=== PATIENT | female | born 1945 | race Caucasian/White ===

== ENCOUNTER 2018-12-16 06:43 | Inpatient (IN) | payer MEDICARE, OTHER ==
[~2018-12-16] VITALS: Ht 152.4 cm; Wt 122.9 kg
[2018-12-16 06:45] VITALS: BP_SYST 155
[2018-12-16] MEDS ORDERED: LevALBUTEROL HCL 1.25 MG/0.5 ML *CONC.* VIAL.NEB (XOPENEX CONC.) INH ONE (07:00)
[2018-12-16] MEDS ORDERED: IPRATROPIUM BROM 0.5 MG/2.5 ML VIAL.NEB (ATROVENT) IH ONE (07:00)
[2018-12-16 07:41] LABS: BASOPHILS % (AUTO) 0.2 % (0.0-2.0); EOSINOPHILS # (AUTO) 0.1 K/uL (0.0-0.4); EOSINOPHILS % (AUTO) 1.1 % (0.0-4.0); HEMATOCRIT 35.5 % (36-48); HEMOGLOBIN 11.5 g/dL (12.0-16.0); LYMPHOCYTES # (AUTO) 1.3 K/uL (1.0-5.5); MEAN CORPUSCULAR HEMOGLOBIN 29 pg (27-31); MEAN CORPUSCULAR HGB CONC 33 % (32-36); MEAN CORPUSCULAR VOLUME 89 fL (79.0-98.0); MONOCYTES # (AUTO) 0.4 K/uL (0.0-1.0); MONOCYTES % (AUTO) 4.1 % (1.7-9.3); NEUTROPHILS # (AUTO) 7.2 K/uL (1.8-7.7); NEUTROPHILS % (AUTO) 80.6 % (40.0-70.0); PLATELET COUNT (AUTO) 177 K/uL (130-430); RED BLOOD CELL COUNT(AUTO) 4.01 MIL/uL (4.2-6.2); RED CELL DISTRIBUTION WIDTH 13.5 % (9.0-15.0)
[2018-12-16 07:54] LABS: PROTHROMBIN TIME 10.3 SECS (9.5-12.5)
[2018-12-16 07:55] LABS: ALANINE AMINOTRANSFERASE 31 U/L (12-78); ANION GAP 12 (5-15); ASPARTATE AMINOTRANSFERASE 42 U/L (10-37); CALCIUM 7.9 mg/dL (8.4-11.0); CHLORIDE 103 mmol/L (98-107); CREATININE 0.87 mg/dL (0.55-1.30); GLUCOSE 283 mg/dL (70-99); POTASSIUM 3.5 mmol/L (3.5-5.1); SODIUM SERUM 140 mmol/L (136-145); TOTAL BILIRUBIN 0.2 mg/dL (0.0-1.0); UREA NITROGEN, BLOOD 13 mg/dL (8-21)
[2018-12-16] MEDS ORDERED: ASPIRIN 81 MG TAB.CHEW PO ONE (08:30)
[2018-12-16] MEDS ORDERED: ASPIRIN 81 MG TABLET(ECOTRIN) ONE (09:16)
[2018-12-16] MEDS ORDERED: PHEN100O4 PO ×2 (10:05)
[2018-12-16] MEDS ORDERED: GLU850 PO (10:05)
[2018-12-16] MEDS ORDERED: LISI40TA4 PO (10:05)
[2018-12-16] MEDS ORDERED: RANI150T8 PO (10:05)
[2018-12-16] MEDS ORDERED: CARV25TA55 PO (10:05)
[2018-12-16] MEDS ORDERED: GABA-533 PO (10:05)
[2018-12-16] MEDS ORDERED: CLAR500T PO (10:05)
[2018-12-16] MEDS ORDERED: INSULIN ASPART 100 UNITS/ML, 10 ML VIAL (NovoLOG) SUBCUT PRN (10:30)
[2018-12-16] MEDS ORDERED: ACETAMINOPHEN 325 MG TABLET PO PRN (11:00)
[2018-12-16] MEDS ORDERED: GLUCOSE 15 GM GEL (in 37.5 GM TUBE) PO PRN (11:00)
[2018-12-16] MEDS ORDERED: DEXTROSE 50%-WATER 50 ML DISP.SYRIN IVP PRN (11:00)
[2018-12-16] MEDS ORDERED: D5W 1,000 ML IV PRN (11:00)
[2018-12-16] MEDS ORDERED: CARVEDILOL 25 MG TABLET (COREG) PO ONE ×2 (11:30)
[2018-12-16] MEDS ORDERED: FAMOTIDINE 20 MG TABLET PO ONE (11:30)
[2018-12-16 11:47] VITALS: BP_SYST 143
[2018-12-16] MEDS: INSULIN ASPART 100 UNITS/ML, 10 ML VIAL (NovoLOG) SUBCUT PRN ×3 (12:08→21:10)
[2018-12-16 14:01] VITALS: BP_SYST 143
[2018-12-16] MEDS: GABAPENTIN 400 MG CAPSULE PO SCH ×2 (14:33→20:40)
[2018-12-16] MEDS: LevALBUTEROL HCL 1.25 MG/0.5 ML *CONC.* VIAL.NEB (XOPENEX CONC.) INH SCH (15:34)
[2018-12-16 16:02] VITALS: BP_SYST 157
[2018-12-16 17:25] VITALS: BP_SYST 128
[2018-12-16 20:10] VITALS: BP_SYST 155
[2018-12-16] MEDS: PHENYTOIN 100 MG/4 ML UDC (DILANTIN) PO SCH (20:41)
[2018-12-16] MEDS: CARVEDILOL 25 MG TABLET (COREG) PO SCH (20:48)
[2018-12-17 01:13] VITALS: BP_SYST 149
[2018-12-17] MEDS: INSULIN ASPART 100 UNITS/ML, 10 ML VIAL (NovoLOG) SUBCUT PRN ×4 (06:31→21:28)
[2018-12-17 07:52] VITALS: BP_SYST 129
[2018-12-17] MEDS: LevALBUTEROL HCL 1.25 MG/0.5 ML *CONC.* VIAL.NEB (XOPENEX CONC.) INH SCH ×3 (08:18→23:19)
[2018-12-17] MEDS: PHENYTOIN 100 MG/4 ML UDC (DILANTIN) PO SCH ×2 (08:32→21:26)
[2018-12-17] MEDS: ASPIRIN 81 MG TABLET(ECOTRIN) PO SCH (08:33)
[2018-12-17] MEDS: LISINOPRIL 20 MG TABLET PO SCH (08:33)
[2018-12-17] MEDS: GABAPENTIN 400 MG CAPSULE PO SCH ×3 (08:33→21:26)
[2018-12-17] MEDS: CARVEDILOL 25 MG TABLET (COREG) PO SCH ×2 (08:34→21:27)
[2018-12-17] MEDS: FAMOTIDINE 20 MG TABLET PO SCH (08:34)
[2018-12-17] MEDS ORDERED: FUROSEMIDE 20 MG/2 ML VIAL IVP ONE (10:15)
[2018-12-17 11:27] VITALS: BP_SYST 120
[2018-12-17 15:00] LABS: CHOLESTEROL 168 mg/dL (<200); HDL CHOLESTEROL 38 mg/dL (>55); LDL CHOLESTEROL 106 mg/dL (<100); TRIGLYCERIDES 202 mg/dL (30-150)
[2018-12-17 15:38] VITALS: BP_SYST 119
[2018-12-17 21:19] VITALS: BP_SYST 122
[2018-12-17] MEDS: FUROSEMIDE 20 MG/2 ML VIAL IVP SCH (21:25)
[2018-12-18 01:34] VITALS: BP_SYST 113
[2018-12-18] MEDS: INSULIN ASPART 100 UNITS/ML, 10 ML VIAL (NovoLOG) SUBCUT PRN ×3 (06:11→20:46)
[2018-12-18 07:06] LABS: ANION GAP 10 (5-15); CALCIUM 8.8 mg/dL (8.4-11.0); CHLORIDE 102 mmol/L (98-107); CREATININE 0.74 mg/dL (0.55-1.30); GLUCOSE 143 mg/dL (70-99); POTASSIUM 3.8 mmol/L (3.5-5.1); SODIUM SERUM 141 mmol/L (136-145); UREA NITROGEN, BLOOD 9 mg/dL (8-21)
[2018-12-18] MEDS: LevALBUTEROL HCL 1.25 MG/0.5 ML *CONC.* VIAL.NEB (XOPENEX CONC.) INH SCH ×3 (07:11→23:00)
[2018-12-18 08:11] VITALS: BP_SYST 122
[2018-12-18] MEDS: PHENYTOIN 100 MG/4 ML UDC (DILANTIN) PO SCH ×3 (08:51→20:42)
[2018-12-18] MEDS: FUROSEMIDE 20 MG/2 ML VIAL IVP SCH (08:51)
[2018-12-18] MEDS: LISINOPRIL 20 MG TABLET PO SCH (08:52)
[2018-12-18] MEDS: FAMOTIDINE 20 MG TABLET PO SCH (08:52)
[2018-12-18] MEDS: ASPIRIN 81 MG TABLET(ECOTRIN) PO SCH (08:52)
[2018-12-18] MEDS: GABAPENTIN 400 MG CAPSULE PO SCH ×3 (08:53→20:43)
[2018-12-18] MEDS: CARVEDILOL 25 MG TABLET (COREG) PO SCH ×2 (08:54→20:43)
[2018-12-18 11:36] VITALS: BP_SYST 121
[2018-12-18 15:38] VITALS: BP_SYST 107
[2018-12-18 20:00] VITALS: BP_SYST 103
[2018-12-18] MEDS ORDERED: ONDANSETRON HCL 4 MG/2 ML VIAL IVP ONE (22:00)
[2018-12-19] VITALS: BP_SYST 101
[2018-12-19] MEDS: LevALBUTEROL HCL 1.25 MG/0.5 ML *CONC.* VIAL.NEB (XOPENEX CONC.) INH SCH (08:06)
[2018-12-19] MEDS: GABAPENTIN 400 MG CAPSULE PO SCH (08:58)
[2018-12-19] MEDS ORDERED: FUROSEMIDE 20 MG TABLET PO SCH (09:00)
[2018-12-19] MEDS: PHENYTOIN 100 MG/4 ML UDC (DILANTIN) PO SCH ×2 (09:00→09:03)
[2018-12-19] MEDS: LISINOPRIL 20 MG TABLET PO SCH (09:01)
[2018-12-19] MEDS: FAMOTIDINE 20 MG TABLET PO SCH (09:02)
[2018-12-19] MEDS: CARVEDILOL 25 MG TABLET (COREG) PO SCH (09:02)
[2018-12-19] MEDS: ASPIRIN 81 MG TABLET(ECOTRIN) PO SCH (09:02)
[2018-12-19 09:13] VITALS: BP_SYST 136
[2018-12-19] MEDS: INSULIN ASPART 100 UNITS/ML, 10 ML VIAL (NovoLOG) SUBCUT PRN (11:22)
[2018-12-19 13:02] VITALS: BP_SYST 131
[2018-12-19] MEDS ORDERED: ALBMDI INH ×2 (13:16→14:02)
[2018-12-19] MEDS ORDERED: FURO-150 PO ×2 (13:16→14:01)
[2018-12-19 13:57] VITALS: BP_SYST 132
== END 2018-12-19 14:31 | disposition home or self-care (01) | DRG 291 ==
LOC: SED 06:43 → STU 10:16
PROVIDERS: ADMIT Internal Medicine; ATTEND Internal Medicine
DX: I11.0 Hypertensive heart disease with heart failure (principal); J96.20 Acute and chronic respiratory failure, unspecified whether with hypoxia or hypercapnia; J44.1 Chronic obstructive pulmonary disease with (acute) exacerbation; Z68.43 Body mass index [BMI] 50.0-59.9, adult; E11.9 Type 2 diabetes mellitus without complications; I50.23 Acute on chronic systolic (congestive) heart failure; I42.9 Cardiomyopathy, unspecified; E66.01 Morbid (severe) obesity due to excess calories; E78.5 Hyperlipidemia, unspecified; G40.909 Epilepsy, unspecified, not intractable, without status epilepticus; Z82.49 Family history of ischemic heart disease and other diseases of the circulatory system; Z87.891 Personal history of nicotine dependence; Z95.810 Presence of automatic (implantable) cardiac defibrillator; Z79.899 Other long term (current) drug therapy; Z79.82 Long term (current) use of aspirin
CPT/HCPCS: 36415; 36600; 71045; 80048; 80053; 80061; 80185-TC; 82803-TC; 82962; 83735-TC; 83880; 84484; 85025; 85610-TC; 85730-TC; 86710; 90656; 93005; 94640; 94760; 99285; G0378; J1815; J1940; J7612

== ENCOUNTER 2019-02-22 14:34 | Inpatient (IN) | payer OTHER ==
[~2019-02-22] VITALS: Ht 144.8 cm; Wt 115.9 kg
[~2019-02-22 14:34] MED LIST: ALBMDI INH; CARV25TA55 PO; FURO-150 PO; GABA-533 PO; GLU850 PO; LISI40TA4 PO; PHEN100O4 PO; RANI150T8 PO
[2019-02-22 14:40] VITALS: BP_SYST 149
[2019-02-22 15:10] LABS: BASOPHILS % (AUTO) 0.4 % (0.0-2.0); EOSINOPHILS # (AUTO) 0.2 K/uL (0.0-0.4); EOSINOPHILS % (AUTO) 1.7 % (0.0-4.0); HEMATOCRIT 35.2 % (36-48); HEMOGLOBIN 11.4 g/dL (12.0-16.0); LYMPHOCYTES # (AUTO) 1.3 K/uL (1.0-5.5); LYMPHOCYTES % (AUTO) 13.4 % (20.5-51.5); MEAN CORPUSCULAR HEMOGLOBIN 29 pg (27-31); MEAN CORPUSCULAR HGB CONC 32 % (32-36); MEAN CORPUSCULAR VOLUME 89 fL (79.0-98.0); MONOCYTES # (AUTO) 0.4 K/uL (0.0-1.0); MONOCYTES % (AUTO) 4.5 % (1.7-9.3); NEUTROPHILS # (AUTO) 7.5 K/uL (1.8-7.7); PLATELET COUNT (AUTO) 173 K/uL (130-430); RED BLOOD CELL COUNT(AUTO) 3.96 MIL/uL (4.2-6.2); RED CELL DISTRIBUTION WIDTH 15.2 % (9.0-15.0); WHITE BLOOD COUNT (AUTO) 9.4 K/uL (4.8-10.8)
[2019-02-22 15:26] LABS: ANION GAP 6 (5-15); CALCIUM 9.3 mg/dL (8.4-11.0); CHLORIDE 102 mmol/L (98-107); CREATININE 0.82 mg/dL (0.55-1.30); GLUCOSE 236 mg/dL (70-99); POTASSIUM 4.2 mmol/L (3.5-5.1); SODIUM SERUM 137 mmol/L (136-145); UREA NITROGEN, BLOOD 16 mg/dL (8-21)
[2019-02-22 15:31] LABS: ALANINE AMINOTRANSFERASE 52 U/L (12-78); ALBUMIN 3.2 g/dL (3.4-4.8); ASPARTATE AMINOTRANSFERASE 47 U/L (10-37); TOTAL BILIRUBIN 0.5 mg/dL (0.0-1.0)
[2019-02-22] MEDS ORDERED: INSULIN ASPART 100 UNITS/ML, 10 ML VIAL (NovoLOG) SUBCUT PRN (16:00)
[2019-02-22] MEDS ORDERED: ASPIRIN 325 MG TABLET PO ONE (16:00)
[2019-02-22 16:07] LABS: PROTHROMBIN TIME 9.9 SECS (9.5-12.5)
[2019-02-22 16:30] VITALS: BP_SYST 124
[2019-02-22] MEDS: INSULIN LISPRO SLIDING SCALE 100 UNITS/ML VIAL (humaLOG) SUBCUT PRN ×2 (17:26→20:14)
[2019-02-22 20:00] VITALS: BP_SYST 135
[2019-02-22] MEDS ORDERED: ONDANSETRON HCL 4 MG/2 ML VIAL IVP PRN (21:00)
[2019-02-22] MEDS ORDERED: NITROGLYCERIN 0.4 MG TAB.SUBL SL PRN (21:00)
[2019-02-22] MEDS ORDERED: HYDROcodone/ACETAMIN 5-325 MG TAB (NORCO/ VICODIN) PO PRN (21:00)
[2019-02-22] MEDS ORDERED: ZOLPIDEM TARTRATE 5 MG TABLET PO PRN (21:00)
[2019-02-22] MEDS: OXYCODONE/ACETAMINOPHEN 5-325 TABLET PO PRN (21:16)
[2019-02-22] MEDS ORDERED: GABAPENTIN 400 MG CAPSULE PO SCH (21:30)
[2019-02-22] MEDS: cefTRIAXone 1 GM in D5W 50 ML IV SCH (21:38)
[2019-02-22] MEDS ORDERED: cefTRIAXone 1 GM VIAL ONE (21:40)
[2019-02-22] MEDS ORDERED: metFORMIN HCL 500 MG TABLET PO SCH (22:00)
[2019-02-22] MEDS ORDERED: PHENYTOIN 100 MG/4 ML UDC (DILANTIN) PO SCH (22:00)
[2019-02-22 22:21] VITALS: BP_SYST 124
[2019-02-22 22:42] LABS: BILIRUBIN,URINE NEGATIVE (NEGATIVE); BLOOD, URINE NEGATIVE (NEGATIVE); CLARITY/URINE CLEAR (CLEAR); COLOR,URINE YELLOW (YELLOW); GLUCOSE,URINE NEGATIVE (NEGATIVE); KETONES,URINE NEGATIVE (NEGATIVE); LEUKOCYTE ESTERASE ,URINE NEGATIVE (NEGATIVE); NITRITE, URINE NEGATIVE (NEGATIVE); PH,URINE 6.5 (5.0-8.0); PROTEIN URINE NEGATIVE (NEGATIVE); UROBILINOGEN,URINE 0.2 (0.2-1.0)
[2019-02-22] MEDS: IPRATROPIUM/ALBUTEROL SULFATE 3 ML AMPUL.NEB (DUONEB) INH SCH (23:01)
[2019-02-22 23:56] VITALS: BP_SYST 144
[2019-02-23] MEDS: IPRATROPIUM/ALBUTEROL SULFATE 3 ML AMPUL.NEB (DUONEB) INH SCH ×4 (00:23→20:48)
[2019-02-23] MEDS: INSULIN LISPRO SLIDING SCALE 100 UNITS/ML VIAL (humaLOG) SUBCUT PRN ×4 (06:12→20:16)
[2019-02-23 06:38] LABS: BASOPHILS % (AUTO) 0.4 % (0.0-2.0); EOSINOPHILS # (AUTO) 0.2 K/uL (0.0-0.4); EOSINOPHILS % (AUTO) 2.8 % (0.0-4.0); HEMATOCRIT 34.7 % (36-48); HEMOGLOBIN 11.5 g/dL (12.0-16.0); LYMPHOCYTES # (AUTO) 1.5 K/uL (1.0-5.5); LYMPHOCYTES % (AUTO) 20.7 % (20.5-51.5); MEAN CORPUSCULAR HEMOGLOBIN 30 pg (27-31); MEAN CORPUSCULAR HGB CONC 33 % (32-36); MEAN CORPUSCULAR VOLUME 90 fL (79.0-98.0); MONOCYTES # (AUTO) 0.5 K/uL (0.0-1.0); MONOCYTES % (AUTO) 6.7 % (1.7-9.3); NEUTROPHILS % (AUTO) 69.4 % (40.0-70.0); PLATELET COUNT (AUTO) 182 K/uL (130-430); RED BLOOD CELL COUNT(AUTO) 3.88 MIL/uL (4.2-6.2); RED CELL DISTRIBUTION WIDTH 15.3 % (9.0-15.0); WHITE BLOOD COUNT (AUTO) 7.2 K/uL (4.8-10.8)
[2019-02-23 06:42] LABS: ANION GAP 6 (5-15); CALCIUM 9.3 mg/dL (8.4-11.0); CHLORIDE 99 mmol/L (98-107); CHOLESTEROL 161 mg/dL (<200); CREATININE 0.71 mg/dL (0.55-1.30); GLUCOSE 175 mg/dL (70-99); HDL CHOLESTEROL 47 mg/dL (>55); LDL CHOLESTEROL 95 mg/dL (<100); POTASSIUM 3.9 mmol/L (3.5-5.1); SODIUM SERUM 137 mmol/L (136-145); TRIGLYCERIDES 173 mg/dL (30-150); UREA NITROGEN, BLOOD 15 mg/dL (8-21)
[2019-02-23 08:20] VITALS: BP_SYST 140
[2019-02-23] MEDS: ASPIRIN 81 MG TABLET(ECOTRIN) PO SCH (08:33)
[2019-02-23] MEDS: LISINOPRIL 20 MG TABLET PO SCH (08:40)
[2019-02-23] MEDS: GABAPENTIN 400 MG CAPSULE PO SCH ×3 (08:40→20:13)
[2019-02-23] MEDS: FAMOTIDINE 20 MG TABLET PO SCH (08:40)
[2019-02-23] MEDS: PHENYTOIN 100 MG/4 ML UDC (DILANTIN) PO SCH ×2 (08:40→20:09)
[2019-02-23] MEDS: CARVEDILOL 25 MG TABLET (COREG) PO SCH ×2 (08:45→17:10)
[2019-02-23] MEDS: metFORMIN HCL 500 MG TABLET PO SCH ×2 (08:45→17:10)
[2019-02-23] MEDS ORDERED: FUROSEMIDE 20 MG TABLET PO SCH (09:00)
[2019-02-23] MEDS ORDERED: ASPIRIN 325 MG TABLET PO SCH (09:00)
[2019-02-23] MEDS ORDERED: FUROSEMIDE 40 MG/4 ML VIAL IVP ONE (12:30)
[2019-02-23 12:35] VITALS: BP_SYST 150
[2019-02-23] MEDS ORDERED: ENOXAPARIN SODIUM 40 MG/0.4 ML SYRINGE SUBCUT ONE (13:45)
[2019-02-23] MEDS: OXYCODONE/ACETAMINOPHEN 5-325 TABLET PO PRN (13:50)
[2019-02-23 16:17] VITALS: BP_SYST 150
[2019-02-23 16:27] VITALS: BP_SYST 100
[2019-02-23] MEDS ORDERED: MORPHINE 4 MG/ML INJ. SYRINGE IVP ONE (17:30)
[2019-02-23 20:00] VITALS: BP_SYST 105
[2019-02-23] MEDS ORDERED: IPRATROPIUM/ALBUTEROL SULFATE 3 ML AMPUL.NEB (DUONEB) ONE (20:45)
[2019-02-23] MEDS: SPIRONOLACTONE 25 MG TABLET (ALDACTONE) PO SCH (22:07)
[2019-02-23] MEDS: FUROSEMIDE 40 MG/4 ML VIAL IVP SCH (22:07)
[2019-02-23] MEDS: cefTRIAXone 1 GM in D5W 50 ML IV SCH (22:08)
[2019-02-23 23:43] VITALS: BP_SYST 93
[2019-02-24] MEDS: IPRATROPIUM/ALBUTEROL SULFATE 3 ML AMPUL.NEB (DUONEB) INH SCH ×3 (01:35→13:52)
[2019-02-24] MEDS: INSULIN LISPRO SLIDING SCALE 100 UNITS/ML VIAL (humaLOG) SUBCUT PRN ×4 (06:05→22:08)
[2019-02-24 06:22] LABS: ANION GAP 9 (5-15); CHLORIDE 97 mmol/L (98-107); GLUCOSE 175 mg/dL (70-99); SODIUM SERUM 135 mmol/L (136-145)
[2019-02-24 07:17] LABS: CREATININE 1.32 mg/dL (0.55-1.30); UREA NITROGEN, BLOOD 30 mg/dL (8-21)
[2019-02-24 08:00] VITALS: BP_SYST 145
[2019-02-24] MEDS: FUROSEMIDE 40 MG/4 ML VIAL IVP SCH (08:20)
[2019-02-24] MEDS: PHENYTOIN 100 MG/4 ML UDC (DILANTIN) PO SCH ×2 (08:21→21:48)
[2019-02-24] MEDS: GABAPENTIN 400 MG CAPSULE PO SCH ×3 (08:22→21:48)
[2019-02-24] MEDS: LISINOPRIL 20 MG TABLET PO SCH (08:22)
[2019-02-24] MEDS: CARVEDILOL 25 MG TABLET (COREG) PO SCH ×2 (08:22→17:24)
[2019-02-24] MEDS: ASPIRIN 81 MG TABLET(ECOTRIN) PO SCH (08:23)
[2019-02-24] MEDS: SPIRONOLACTONE 25 MG TABLET (ALDACTONE) PO SCH (08:23)
[2019-02-24] MEDS: metFORMIN HCL 500 MG TABLET PO SCH (08:23)
[2019-02-24] MEDS: FAMOTIDINE 20 MG TABLET PO SCH (08:23)
[2019-02-24] MEDS ORDERED: ENOXAPARIN SODIUM 40 MG/0.4 ML SYRINGE SUBCUT SCH (09:00)
[2019-02-24] MEDS ORDERED: methylPREDNISolone SOD SUCC 40 MG/ML VIAL IVP ONE (10:15)
[2019-02-24] MEDS ORDERED: CYCLOBENZAPRINE HCL 10 MG TABLET (FLEXERIL) PO ONE (11:45)
[2019-02-24] MEDS ORDERED: ENOXAPARIN SODIUM 30 MG/0.3 ML SYRINGE SUBCUT SCH (14:15)
[2019-02-24 15:53] VITALS: BP_SYST 106
[2019-02-24 16:32] VITALS: BP_SYST 119
[2019-02-24 20:20] VITALS: BP_SYST 128
[2019-02-24] MEDS: methylPREDNISolone SOD SUCC 40 MG/ML VIAL IVP SCH (21:47)
[2019-02-24] MEDS: cefTRIAXone 1 GM in D5W 50 ML IV SCH (21:47)
[2019-02-24] MEDS: ACETAMINOPHEN 325 MG TABLET PO PRN (22:10)
[2019-02-24] MEDS ORDERED: OXYCODONE/ACETAMINOPHEN *10*mg/325 mg TABLET PO ONE (22:30)
[2019-02-24] MEDS ORDERED: OXYCODONE/ACETAMINOPHEN 5-325 TABLET PO ONE (22:30)
[2019-02-25] VITALS (8 sets, daily range): BP systolic 100–131
[2019-02-25 06:13] LABS: ANION GAP 7 (5-15); CALCIUM 8.8 mg/dL (8.4-11.0); CHLORIDE 97 mmol/L (98-107); CREATININE 1.09 mg/dL (0.55-1.30); GLUCOSE 307 mg/dL (70-99); POTASSIUM 4.9 mmol/L (3.5-5.1); SODIUM SERUM 135 mmol/L (136-145); UREA NITROGEN, BLOOD 34 mg/dL (8-21)
[2019-02-25] MEDS: INSULIN LISPRO SLIDING SCALE 100 UNITS/ML VIAL (humaLOG) SUBCUT PRN ×4 (06:25→20:46)
[2019-02-25 06:28] LABS: THYROID STIMULATING HORMONE 0.68 uIu/mL (0.36-3.74)
[2019-02-25] MEDS: IPRATROPIUM/ALBUTEROL SULFATE 3 ML AMPUL.NEB (DUONEB) INH SCH ×4 (07:37→19:47)
[2019-02-25] MEDS: ASPIRIN 81 MG TABLET(ECOTRIN) PO SCH (09:08)
[2019-02-25] MEDS: LISINOPRIL 20 MG TABLET PO SCH (09:09)
[2019-02-25] MEDS: FAMOTIDINE 20 MG TABLET PO SCH (09:09)
[2019-02-25] MEDS: GABAPENTIN 400 MG CAPSULE PO SCH ×3 (09:09→20:33)
[2019-02-25] MEDS: FUROSEMIDE 40 MG/4 ML VIAL IVP SCH (09:10)
[2019-02-25] MEDS: methylPREDNISolone SOD SUCC 40 MG/ML VIAL IVP SCH (09:10)
[2019-02-25] MEDS: PHENYTOIN 100 MG/4 ML UDC (DILANTIN) PO SCH ×2 (09:10→20:32)
[2019-02-25] MEDS: ENOXAPARIN SODIUM 30 MG/0.3 ML SYRINGE SUBCUT SCH (09:13)
[2019-02-25] MEDS: CARVEDILOL 25 MG TABLET (COREG) PO SCH ×2 (09:24→19:04)
[2019-02-25] MEDS ORDERED: INSULIN GLARGINE 100 UNITS/ML 10 ML VIAL SUBCUT ONE (15:00)
[2019-02-25] MEDS: PREDNISONE 20 MG TABLET PO SCH (20:33)
[2019-02-25] MEDS: cefTRIAXone 1 GM in D5W 50 ML IV SCH (20:51)
[2019-02-26 00:49] VITALS: BP_SYST 100
[2019-02-26] MEDS: ACETAMINOPHEN 325 MG TABLET PO PRN (03:30)
[2019-02-26] MEDS: INSULIN LISPRO SLIDING SCALE 100 UNITS/ML VIAL (humaLOG) SUBCUT PRN ×4 (05:51→21:47)
[2019-02-26 06:45] LABS: ANION GAP 7 (5-15); CALCIUM 9.4 mg/dL (8.4-11.0); CHLORIDE 93 mmol/L (98-107); CREATININE 0.99 mg/dL (0.55-1.30); GLUCOSE 293 mg/dL (70-99); SODIUM SERUM 129 mmol/L (136-145); UREA NITROGEN, BLOOD 42 mg/dL (8-21)
[2019-02-26] MEDS: IPRATROPIUM/ALBUTEROL SULFATE 3 ML AMPUL.NEB (DUONEB) INH SCH ×4 (06:58→20:21)
[2019-02-26 08:27] VITALS: BP_SYST 146
[2019-02-26] MEDS: LISINOPRIL 20 MG TABLET PO SCH (08:42)
[2019-02-26] MEDS: CARVEDILOL 25 MG TABLET (COREG) PO SCH ×2 (08:42→17:18)
[2019-02-26] MEDS: ASPIRIN 81 MG TABLET(ECOTRIN) PO SCH (08:43)
[2019-02-26] MEDS: GABAPENTIN 400 MG CAPSULE PO SCH ×3 (08:43→21:36)
[2019-02-26] MEDS: FAMOTIDINE 20 MG TABLET PO SCH (08:44)
[2019-02-26] MEDS: PHENYTOIN 100 MG/4 ML UDC (DILANTIN) PO SCH ×2 (08:44→21:21)
[2019-02-26] MEDS: PREDNISONE 20 MG TABLET PO SCH ×2 (08:44→21:36)
[2019-02-26] MEDS: FUROSEMIDE 40 MG/4 ML VIAL IVP SCH (08:45)
[2019-02-26] MEDS: ENOXAPARIN SODIUM 30 MG/0.3 ML SYRINGE SUBCUT SCH (08:48)
[2019-02-26 11:39] VITALS: BP_SYST 118
[2019-02-26 16:42] VITALS: BP_SYST 143
[2019-02-26 20:00] VITALS: BP_SYST 98
[2019-02-26] MEDS ORDERED: INSULIN GLARGINE 100 UNITS/ML 10 ML VIAL SUBCUT SCH (21:00)
[2019-02-26] MEDS: cefTRIAXone 1 GM in D5W 50 ML IV SCH (21:20)
[2019-02-26] MEDS: SPIRONOLACTONE 25 MG TABLET (ALDACTONE) PO SCH (22:48)
[2019-02-26 23:52] VITALS: BP_SYST 95
[2019-02-27] MEDS: IPRATROPIUM/ALBUTEROL SULFATE 3 ML AMPUL.NEB (DUONEB) INH SCH ×2 (00:08→07:12)
[2019-02-27 05:37] LABS: ANION GAP 6 (5-15); CALCIUM 9.5 mg/dL (8.4-11.0); CHLORIDE 100 mmol/L (98-107); CREATININE 1.01 mg/dL (0.55-1.30); GLUCOSE 246 mg/dL (70-99); POTASSIUM 5.1 mmol/L (3.5-5.1); SODIUM SERUM 137 mmol/L (136-145); UREA NITROGEN, BLOOD 39 mg/dL (8-21)
[2019-02-27] MEDS: INSULIN LISPRO SLIDING SCALE 100 UNITS/ML VIAL (humaLOG) SUBCUT PRN ×2 (06:16→11:14)
[2019-02-27] MEDS: ACETAMINOPHEN 325 MG TABLET PO PRN (06:45)
[2019-02-27 08:00] VITALS: BP_SYST 142
[2019-02-27] MEDS: PREDNISONE 20 MG TABLET PO SCH (08:53)
[2019-02-27] MEDS: LISINOPRIL 20 MG TABLET PO SCH (08:54)
[2019-02-27] MEDS: CARVEDILOL 25 MG TABLET (COREG) PO SCH (08:55)
[2019-02-27] MEDS: ASPIRIN 81 MG TABLET(ECOTRIN) PO SCH (08:55)
[2019-02-27] MEDS: SPIRONOLACTONE 25 MG TABLET (ALDACTONE) PO SCH (08:55)
[2019-02-27] MEDS: GABAPENTIN 400 MG CAPSULE PO SCH (08:55)
[2019-02-27] MEDS: FAMOTIDINE 20 MG TABLET PO SCH (08:55)
[2019-02-27] MEDS: PHENYTOIN 100 MG/4 ML UDC (DILANTIN) PO SCH (08:56)
[2019-02-27] MEDS: ENOXAPARIN SODIUM 30 MG/0.3 ML SYRINGE SUBCUT SCH (08:57)
[2019-02-27] MEDS ORDERED: FUROSEMIDE 40 MG TABLET PO SCH (09:00)
[2019-02-27 10:32] VITALS: BP_SYST 131
[2019-02-27 10:47] VITALS: BP_SYST 131
== END 2019-02-27 12:15 | DRG 190 ==
LOC: SED 14:34 → STU 15:57 → SMU 02-26 16:19
PROVIDERS: ADMIT Internal Medicine; ATTEND Internal Medicine
PROC: 5A09357 Assistance with Respiratory Ventilation, Less than 24 Consecutive Hours, Continuous Positive Airway Pressure (ICD-10-PCS; principal; 2019-02-24)
PROC: 5A09357 Assistance with Respiratory Ventilation, Less than 24 Consecutive Hours, Continuous Positive Airway Pressure (ICD-10-PCS; 2019-02-25)
PROC: 5A09357 Assistance with Respiratory Ventilation, Less than 24 Consecutive Hours, Continuous Positive Airway Pressure (ICD-10-PCS; 2019-02-26)
DX: J44.1 Chronic obstructive pulmonary disease with (acute) exacerbation (principal); I50.23 Acute on chronic systolic (congestive) heart failure; J96.10 Chronic respiratory failure, unspecified whether with hypoxia or hypercapnia; I42.9 Cardiomyopathy, unspecified; Z68.43 Body mass index [BMI] 50.0-59.9, adult; G40.909 Epilepsy, unspecified, not intractable, without status epilepticus; E66.01 Morbid (severe) obesity due to excess calories; E11.9 Type 2 diabetes mellitus without complications; I11.0 Hypertensive heart disease with heart failure; Z88.9 Allergy status to unspecified drugs, medicaments and biological substances; Z91.09 Other allergy status, other than to drugs and biological substances; Z87.891 Personal history of nicotine dependence; Z95.0 Presence of cardiac pacemaker; Z91.14 Patient's other noncompliance with medication regimen; Z79.4 Long term (current) use of insulin
CPT/HCPCS: 36415; 36600; 71045; 80048; 80053; 80061; 80185-TC; 81003; 82803-TC; 82962; 83735-TC; 83880; 84443-TC; 84484; 85025; 85610-TC; 85730-TC; 86710; 87040-TC; 93005; 93306; 93970; 94640; 94660; 94760; 97116-GP; 97530-GP; 99285; G0378; J0696; J1030; J1650; J1815; J1940; J2270; J2405; J7060; J7512; J7620

== ENCOUNTER 2019-03-22 00:16 | Inpatient (IN) | payer OTHER ==
[2019-03-22] VITALS (7 sets, daily range): BP systolic 101–120
[~2019-03-22] VITALS: Ht 152.4 cm; Wt 115.7 kg
[2019-03-22 02:36] LABS: BASOPHILS % (AUTO) 0.4 % (0.0-2.0); EOSINOPHILS # (AUTO) 0.1 K/uL (0.0-0.4); HEMATOCRIT 37.1 % (36-48); HEMOGLOBIN 12.3 g/dL (12.0-16.0); LYMPHOCYTES # (AUTO) 1.8 K/uL (1.0-5.5); LYMPHOCYTES % (AUTO) 14.9 % (20.5-51.5); MEAN CORPUSCULAR HEMOGLOBIN 30 pg (27-31); MEAN CORPUSCULAR HGB CONC 33 % (32-36); MEAN CORPUSCULAR VOLUME 89 fL (79.0-98.0); MONOCYTES # (AUTO) 0.8 K/uL (0.0-1.0); MONOCYTES % (AUTO) 6.7 % (1.7-9.3); NEUTROPHILS # (AUTO) 9.2 K/uL (1.8-7.7); PLATELET COUNT (AUTO) 178 K/uL (130-430); RED BLOOD CELL COUNT(AUTO) 4.16 MIL/uL (4.2-6.2); RED CELL DISTRIBUTION WIDTH 15.6 % (9.0-15.0)
[2019-03-22 02:44] LABS: ANION GAP 11 (5-15); CALCIUM 8.8 mg/dL (8.4-11.0); CHLORIDE 99 mmol/L (98-107); GLUCOSE 216 mg/dL (70-99); POTASSIUM 4.7 mmol/L (3.5-5.1); SODIUM SERUM 135 mmol/L (136-145); UREA NITROGEN, BLOOD 61 mg/dL (8-21)
[2019-03-22 02:47] LABS: PROTHROMBIN TIME 10.1 SECS (9.5-12.5)
[2019-03-22 02:49] LABS: ALANINE AMINOTRANSFERASE 24 U/L (12-78); ALBUMIN 3.3 g/dL (3.4-4.8); ASPARTATE AMINOTRANSFERASE 23 U/L (10-37); TOTAL BILIRUBIN 0.6 mg/dL (0.0-1.0)
[2019-03-22 02:51] LABS: ACETAMINOPHEN < 1 ug/mL (1-30); ALCOHOL, BLOOD < 3 mg/dL (<10); CREATININE 2.63 mg/dL (0.55-1.30)
[2019-03-22] MEDS ORDERED: PIPERACILLIN/TAZO 3.375 GM in NS 50 ML IV ONE (03:00)
[2019-03-22] MEDS ORDERED: NACL 0.9% 1,000 ML IV ONE (03:00)
[2019-03-22 03:11] LABS: CKMB RELATIVE INDEX 0.4 (0.0-2.9); CREATINE KINASE MB 2.3 ng/mL (0-3.6)
[2019-03-22] MEDS ORDERED: NACL 0.9% 1,000 ML IV SCH ×2 (03:15→04:00)
[2019-03-22] MEDS ORDERED: PIPERACILLIN/TAZOBACTAM 3.375 GM/VIAL (ZOSYN) IV ONE (03:16)
[2019-03-22 03:18] LABS: BILIRUBIN,URINE 1+ (NEGATIVE); BLOOD, URINE 1+ (NEGATIVE); CLARITY/URINE SL HAZY (CLEAR); COLOR,URINE YELLOW (YELLOW); GLUCOSE,URINE NEGATIVE (NEGATIVE); KETONES,URINE NEGATIVE (NEGATIVE); LEUKOCYTE ESTERASE ,URINE NEGATIVE (NEGATIVE); NITRITE, URINE NEGATIVE (NEGATIVE); PROTEIN URINE NEGATIVE (NEGATIVE); UROBILINOGEN,URINE 0.2 (0.2-1.0)
[2019-03-22 03:32] LABS: BARBITURATE, URINE POSITIVE (NEG <=200); BENZODIAZEPINE, URINE NEGATIVE (NEG <=150); CANNABINOID, URINE NEGATIVE (NEG <=50); COCAINE, URINE NEGATIVE (NEG <=150); METHAMPHETAMINES SCREEN,URINE NEGATIVE (NEG <=500); OPIATE, URINE NEGATIVE (NEG <=100); PHENCYCLIDINE SCREEN,URINE NEGATIVE (NEG <=25); UR TRICYCLIC ANTIDEPRESSANTS NEGATIVE (NEG <=300); URINE AMPHETAMINE NEGATIVE (NEG <=500); URINE METHADONE NEGATIVE (NEG <=200); URINE OXYCODONE SCREEN NEGATIVE (NEG <=100); URINE PROPOXYPHENE SCREEN NEGATIVE (NEG <=300)
[2019-03-22 03:37] LABS: BACTERIA,URINE FEW /HPF (None Seen); WBC,URINE 0-3 /HPF (0-3)
[2019-03-22] MEDS ORDERED: ALBUTEROL SULFATE 0.083% 2.5 MG/3 ML VIAL.NEB INH PRN (10:00)
[2019-03-22] MEDS: NACL 0.9% 1,000 ML IV SCH ×2 (10:00→21:05)
[2019-03-22] MEDS ORDERED: metroNIDAZOLE 500 mg/NS 100 ML IV SCH (10:00)
[2019-03-22] MEDS ORDERED: IPRATROPIUM BROM 0.5 MG/2.5 ML VIAL.NEB (ATROVENT) INH PRN (10:00)
[2019-03-22] MEDS ORDERED: DEXTROSE 50% JECT 50 ML DISP.SYRIN IVP PRN (10:00)
[2019-03-22] MEDS ORDERED: CARVEDILOL 25 MG TABLET (COREG) PO ONE (10:15)
[2019-03-22] MEDS: IPRATROPIUM BROM 0.5 MG/2.5 ML VIAL.NEB (ATROVENT) INH SCH ×4 (11:19→23:00)
[2019-03-22] MEDS: ALBUTEROL SULFATE 0.083% 2.5 MG/3 ML VIAL.NEB INH SCH ×4 (11:19→23:00)
[2019-03-22] MEDS: INSULIN REGULAR, HUMAN 100 UNITS/ML, 10 ML VIAL (novoLIN R) SUBCUT PRN ×2 (12:09→17:38)
[2019-03-22] MEDS: LEVOFLOXACIN 500 MG/D5W 100 ML IV SCH (13:00)
[2019-03-22] MEDS: HYDROcodone/ACETAMIN 5-325 MG TAB (NORCO/ VICODIN) PO PRN (18:48)
[2019-03-22] MEDS: CARVEDILOL 25 MG TABLET (COREG) PO SCH (21:04)
[2019-03-22] MEDS: metroNIDAZOLE 500 mg/NS 100 ML IV SCH (21:05)
[2019-03-23] MEDS: HYDROcodone/ACETAMIN 5-325 MG TAB (NORCO/ VICODIN) PO PRN ×3 (00:50→20:09)
[2019-03-23 01:13] VITALS: BP_SYST 96
[2019-03-23] MEDS: ALBUTEROL SULFATE 0.083% 2.5 MG/3 ML VIAL.NEB INH SCH ×6 (03:00→23:00)
[2019-03-23] MEDS: IPRATROPIUM BROM 0.5 MG/2.5 ML VIAL.NEB (ATROVENT) INH SCH ×6 (03:00→23:00)
[2019-03-23] MEDS: NACL 0.9% 1,000 ML IV SCH ×2 (05:24→17:08)
[2019-03-23] MEDS: metroNIDAZOLE 500 mg/NS 100 ML IV SCH ×3 (05:25→21:53)
[2019-03-23 06:23] LABS: BASOPHILS % (AUTO) 0.2 % (0.0-2.0); EOSINOPHILS # (AUTO) 0.2 K/uL (0.0-0.4); EOSINOPHILS % (AUTO) 3.5 % (0.0-4.0); HEMATOCRIT 32.3 % (36-48); HEMOGLOBIN 10.6 g/dL (12.0-16.0); LYMPHOCYTES # (AUTO) 1.6 K/uL (1.0-5.5); LYMPHOCYTES % (AUTO) 23.9 % (20.5-51.5); MEAN CORPUSCULAR HEMOGLOBIN 29 pg (27-31); MEAN CORPUSCULAR HGB CONC 33 % (32-36); MEAN CORPUSCULAR VOLUME 89 fL (79.0-98.0); MONOCYTES # (AUTO) 0.5 K/uL (0.0-1.0); MONOCYTES % (AUTO) 7.7 % (1.7-9.3); NEUTROPHILS # (AUTO) 4.2 K/uL (1.8-7.7); NEUTROPHILS % (AUTO) 64.7 % (40.0-70.0); PLATELET COUNT (AUTO) 133 K/uL (130-430); RED BLOOD CELL COUNT(AUTO) 3.63 MIL/uL (4.2-6.2); RED CELL DISTRIBUTION WIDTH 15.2 % (9.0-15.0)
[2019-03-23 06:57] LABS: WHITE BLOOD COUNT (AUTO) 6.6 K/uL (4.8-10.8)
[2019-03-23 07:10] LABS: ALANINE AMINOTRANSFERASE 19 U/L (12-78); ALBUMIN 2.5 g/dL (3.4-4.8); ANION GAP 10 (5-15); ASPARTATE AMINOTRANSFERASE 18 U/L (10-37); CALCIUM 8.3 mg/dL (8.4-11.0); CHLORIDE 107 mmol/L (98-107); CREATININE 1.18 mg/dL (0.55-1.30); GLUCOSE 139 mg/dL (70-99); POTASSIUM 3.9 mmol/L (3.5-5.1); SODIUM SERUM 138 mmol/L (136-145); TOTAL BILIRUBIN 0.4 mg/dL (0.0-1.0); UREA NITROGEN, BLOOD 43 mg/dL (8-21)
[2019-03-23 08:04] VITALS: BP_SYST 137
[2019-03-23] MEDS: LEVOFLOXACIN 500 MG/D5W 100 ML IV SCH (09:48)
[2019-03-23] MEDS: INSULIN REGULAR, HUMAN 100 UNITS/ML, 10 ML VIAL (novoLIN R) SUBCUT PRN ×2 (11:58→17:13)
[2019-03-23] MEDS: CARVEDILOL 25 MG TABLET (COREG) PO SCH ×2 (12:08→20:10)
[2019-03-23 12:32] VITALS: BP_SYST 123
[2019-03-23] MEDS ORDERED: VANCOMYCIN HCL 250 MG CAPSULE PO ONE (14:30)
[2019-03-23 15:44] VITALS: BP_SYST 105
[2019-03-23 20:30] VITALS: BP_SYST 139
[2019-03-23] MEDS: VANCOMYCIN HCL 250 MG CAPSULE PO SCH (21:53)
[2019-03-23 23:42] VITALS: BP_SYST 112
[2019-03-24] MEDS: ALBUTEROL SULFATE 0.083% 2.5 MG/3 ML VIAL.NEB INH SCH ×6 (02:06→23:00)
[2019-03-24] MEDS: IPRATROPIUM BROM 0.5 MG/2.5 ML VIAL.NEB (ATROVENT) INH SCH ×5 (02:06→23:00)
[2019-03-24] MEDS: NACL 0.9% 1,000 ML IV SCH ×3 (03:38→20:32)
[2019-03-24] MEDS: HYDROcodone/ACETAMIN 5-325 MG TAB (NORCO/ VICODIN) PO PRN ×2 (05:47→20:32)
[2019-03-24] MEDS: metroNIDAZOLE 500 mg/NS 100 ML IV SCH ×3 (05:47→21:06)
[2019-03-24] MEDS: VANCOMYCIN HCL 250 MG CAPSULE PO SCH ×3 (05:47→21:06)
[2019-03-24] MEDS: INSULIN REGULAR, HUMAN 100 UNITS/ML, 10 ML VIAL (novoLIN R) SUBCUT PRN ×3 (05:49→16:53)
[2019-03-24 08:00] VITALS: BP_SYST 112
[2019-03-24] MEDS: CARVEDILOL 25 MG TABLET (COREG) PO SCH ×2 (08:52→20:35)
[2019-03-24 12:44] VITALS: BP_SYST 116
[2019-03-24 16:21] VITALS: BP_SYST 126
[2019-03-24 20:00] VITALS: BP_SYST 135
[2019-03-24 23:05] VITALS: BP_SYST 152
[2019-03-25] MEDS: INSULIN REGULAR, HUMAN 100 UNITS/ML, 10 ML VIAL (novoLIN R) SUBCUT PRN ×3 (00:29→12:04)
[2019-03-25] MEDS: HYDROcodone/ACETAMIN 5-325 MG TAB (NORCO/ VICODIN) PO PRN (03:26)
[2019-03-25] MEDS: VANCOMYCIN HCL 250 MG CAPSULE PO SCH ×2 (06:01→13:54)
[2019-03-25] MEDS: metroNIDAZOLE 500 mg/NS 100 ML IV SCH ×2 (06:01→13:54)
[2019-03-25] MEDS: IPRATROPIUM BROM 0.5 MG/2.5 ML VIAL.NEB (ATROVENT) INH SCH ×3 (07:23→15:06)
[2019-03-25] MEDS: ALBUTEROL SULFATE 0.083% 2.5 MG/3 ML VIAL.NEB INH SCH ×3 (07:23→15:06)
[2019-03-25 08:00] VITALS: BP_SYST 132
[2019-03-25 09:30] VITALS: BP_SYST 152
[2019-03-25] MEDS: NACL 0.9% 1,000 ML IV SCH (09:49)
[2019-03-25] MEDS: CARVEDILOL 25 MG TABLET (COREG) PO SCH (09:49)
[2019-03-25 12:14] VITALS: BP_SYST 119
[2019-03-25 14:21] VITALS: BP_SYST 141
[2019-03-25 15:12] VITALS: BP_SYST 130
[2019-03-25] MEDS ORDERED: PHENYTOIN 100 MG CAPSULE PO SCH (21:00)
== END 2019-03-25 16:00 | DRG 371 ==
LOC: SED 00:16 → STU 03:11 → SMU 03-23 15:15
PROVIDERS: ADMIT Internal Medicine Hospice and Palliative Medicine; ATTEND Internal Medicine Hospice and Palliative Medicine
DX: A04.72 Enterocolitis due to Clostridium difficile, not specified as recurrent (principal); G93.41 Metabolic encephalopathy; J96.20 Acute and chronic respiratory failure, unspecified whether with hypoxia or hypercapnia; N17.0 Acute kidney failure with tubular necrosis; J44.9 Chronic obstructive pulmonary disease, unspecified; E11.9 Type 2 diabetes mellitus without complications; I11.0 Hypertensive heart disease with heart failure; I50.9 Heart failure, unspecified; M19.90 Unspecified osteoarthritis, unspecified site; Z79.899 Other long term (current) drug therapy; Z95.0 Presence of cardiac pacemaker
CPT/HCPCS: 36415; 70450-TC; 71045; 72170-TC; 80053; 80185-TC; 80307; 81000-TC; 82550-TC; 82553-TC; 82962; 83605; 84484; 85025; 85610-TC; 87040-TC; 87081; 87230-TC; 93005; 94640; 94760; 96365; 97116-GP; 97530-GP; 99285; G0378; G0480; G0481; G0482; J1815; J1956; J2543; J3490; J7030; J7613